=== PATIENT | male | born 1985 | race Caucasian/White ===

== ENCOUNTER 2016-10-03 10:05 | Observation (INO) | payer OTHER ==
[~2016-10-03] VITALS: Ht 172.7 cm; Wt 72.6 kg
[~2016-10-03 10:05] MED LIST: AMOXICILLIN500 M3 PO; LEVSIN/SL0.125 MG SL; OMEPRAZOLE D/R20 MG PO; PEPCID20 MG PO; PERCOCET 5-3251 EACH PO; PRILOSEC 20MG C20 MG PO; REGLAN10 MG PO; ZOFRAN4 M1 SL
--- NOTE | 2016-10-03 11:18 | ED GI/GU/ABDOMINAL COMPLAINT ---
See Addendum History of Present Illness General Chief Complaint: Male Genitourinary Problems Stated Complaint: "I THINK I HAVE KIDNEY STONES" Source: patient, old records Exam Limitations: no limitations Vital Signs & Intake/Output Vital Signs & Intake/Output Vital Signs Date Time Temp Pulse Resp B/P Pulse O2 O2 Flow FiO2 Ox Delivery Rate 10/03 1438 97.2 50 18 151/91 99 Room Air 10/03 1231 97.0 70 18 140/80 99 Room Air 10/03 1043 98 Room Air 10/03 1019 97.0 63 20 148/88 99 Room Air Room Air Allergies Coded Allergies: NO KNOWN ALLERGIES (03/16/16) Reconcile Medications No Known Home Medications Triage Note: PT TO ED WITH C/O RIGHT FLANK PAIN, SINCE WAKING UP THIS MORNING, HX KIDNEY STONES Triage Nurses Notes Reviewed? yes Onset: Just prior to arrival Duration: hour(s):, constant, continues in ED, getting worse Timing: recent history Quality/Severity: aching, sharpness, severe, vomiting Location: right flank Radiation: RLQ Activities at Onset: rest Prior Abdominal Problems: similar symptoms Past Sexual History: Unobtainable at this time No Modifying Factors: none Associated Symptoms: abdominal pain, diaphoresis, loss of appetite, nausea/ vomiting HPI: 2 hours prior to admission after waking patient complains of severe sharp achy right flank pain associated with nausea vomiting diaphoresis loss of appetite. He denies fever chills chest pain cough shortness of breath headache dysuria rash bleeding Past History Travel History Traveled to [place] past 21 day No Medical History Any Pertinent Medical History? 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 No Review of Systems Review of Systems Constitutional: Reports: see HPI, diaphoresis. EENTM: Reports: no symptoms. Respiratory: Reports: no symptoms. Cardiovascular: Reports: no symptoms. GI: Reports: see HPI, abdominal pain, vomiting. Genitourinary: Reports: see HPI, pain. Musculoskeletal: Reports: no symptoms. Skin: Reports: no symptoms. Neurological/Psychological: Reports: no symptoms. Hematologic/Endocrine: Reports: no symptoms. Immunologic/Allergic: Reports: no symptoms. All Other Systems: Reviewed and Negative Physical Exam Physical Exam General Appearance: well developed/nourished, alert, awake, anxious, severe distress Head: atraumatic, normal appearance Eyes: Bilateral: normal appearance, PERRL, EOMI, normal inspection. Ears, Nose, Throat, Mouth: hearing grossly normal, moist mucous membrane Neck: normal inspection, supple, full range of motion, normal alignment Respiratory: normal breath sounds, chest non-tender, no respiratory distress, quiet respiration, lungs clear Cardiovascular: regular rate/rhythm, normal peripheral pulses, norml femoral pulses equa Peripheral Pulses: 4+ carotid (R), 4+ carotid (L) Gastrointestinal: normal bowel sounds, soft, non-tender, no organomegaly Male Genitals: normal genitalia Back: normal inspection, normal range of motion, no vertebral tenderness Extremities: normal range of motion, no ligament instability Neurologic/Psych: no motor/sensory deficits, awake, alert, oriented x 3, normal gait, abnormal cerebellar tests Skin: normal color, diaphoresis Core Measures ACS in differential dx? No Severe Sepsis Present: No Septic Shock Present: No Progress Differential Diagnosis: biliary colic, gastritis, pyelonephritis, ureterolithiasis, UTI/pyelo Plan of Care: Orders Procedure Date/time Status Regular Diet 10/03 D Active Pathway - chart 10/03 1640 Active House Staff 10/03 1640 Active Patient Data 10/03 1640 Active Code Status 10/03 1640 Active Patient Data 10/03 1627 Active OXYGEN SETUP (GEN) 10/03 1610 Active Saline Lock 10/[address] in observation 10/03 1610 Active Vital Signs 10/03 1610 Active Activity/Ambulation 10/03 1610 Active Code Status 10/03 1610 Complete COMPREHENSIVE METABOLIC PANEL 10/03 1140 Complete CBC WITHOUT DIFFERENTIAL 10/03 1140 Complete Intake & Output 10/03 1043 Active URINALYSIS 10/03 1011 Complete VTE Mechanical Prophylaxis 10/03 UNK Active Current Medications Sig/Brea Start time Last Medication Dose Stop Time Status Admin Acetaminophen 325 MG Q6P PRN 10/03 1645 AC (Tylenol) Morphine Sulfate 2 MG Q4 PRN 10/03 1645 AC (Morphine) Oxycodone/ 1 TAB Q6 PRN 10/03 1645 AC Acetaminophen (Percocet) Laboratory Tests 10/03/16 1226: Anion Gap 8, Estimated GFR > 60, BUN/Creatinine Ratio 17.5, Glucose 149 H, Calcium 9.8, Total Bilirubin 0.5, AST 30, ALT 53, Alkaline Phosphatase 80, Total Protein 7.5, Albumin 4.5, Globulin 3.0, Albumin/Globulin Ratio 1.5, CBC w Diff NO MAN DIFF REQ, RBC 4.92, MCV 97.3 H, MCH 32.3 H, RDW 13.5, MPV 9.6, Gran % 81.9 H, Lymphocytes % 11.9 L, Monocytes % 5.3, Eosinophils % 0.6, Basophils % 0.3, Absolute Granulocytes 12.5 H, Absolute Lymphocytes 1.8, Absolute Monocytes 0.8 H, Absolute Eosinophils 0.1, Absolute Basophils 0, PUBS MCHC 33.2 10/03/16 1110: Urinalysis LIGHT H, Urine Color BROWN H, Urine Clarity CLDY H, Urine pH 5.5, Ur Specific [place] >= 1.030, Urine Protein 100 H, Urine Ketones TRACE H, Urine Nitrite POS H, Urine Bilirubin NEG@ICTO, Urine Urobilinogen 1.0, Ur Leukocyte Esterase NEG, Ur Microscopic SEDIMENT EXAMINED, Urine RBC >75 H, Urine WBC RARE, Ur Epithelial Cells RARE, Urine Bacteria FEW H, Urine Mucus MOD H, Micro UA Comment MORE INFO: H, Urine Hemoglobin LARGE H, Urine Glucose NEG Diagnostic Imaging: Viewed by Me: CT Scan. Discussed w/RAD: CT Scan. Radiology Impression: no acute abnormality Initial ED EKG: none Comments: Recurrent episodes of severe right flank pain requiring rapid titration of pain with fentanyl x 3 with nausea crying out with fear of recurrence and discharged home. Departure Departure Disposition: STILL A PATIENT Condition: Stable Clinical Impression Primary Impression: Hematuria Secondary Impressions: Leukocytosis Qualifiers: Leukocytosis type: unspecified Qualified Code: D72.829 - Elevated white blood cell count, unspecified Renal colic on right side Referrals: PATIENT HAS NO PRIMARY CARE DR (PCP/Family) Departure Forms: Customer Survey General Discharge Information Prescriptions: Current Visit Scripts No Known Home Medications Observation Note Spoke With: PRAMOD PATIÑO,TEODORA Physician Advisor Notified: STEFANIE DO,ENRIQUETA L. Place Patient In: Non-ED OBS Care Area Rationale for Observation: My rational for observation is as follows IV analgesia IV antiemetics and IV hydration serial exam continuing care discharge planning. Critical Care Note Critical Care Note Critical Care Time: 30-74 min (45)
--- NOTE | 2016-10-03 12:08 | CT SCAN REPORT ---
EXAMINATION: CT ABDOMEN AND PELVIS WITHOUT CONTRAST CLINICAL INFORMATION: 31-year-old man with renal colic and hematuria. COMPARISON: None TECHNIQUE: Multidetector volumetric imaging was performed from the superior aspect of the liver through the pubic symphysis. Sagittal and coronal reformatted images were obtained on the technologist's workstation. DLP: 254 mGy-cm FINDINGS: The lung bases are clear. The liver, spleen, pancreas, adrenals, kidneys, and partially contracted gallbladder are normal in their noncontrast appearance. A 1 mm nonobstructive calculus is seen in the midpole of the left kidney. Nondilated loops of large and small bowel are also unremarkable in appearance. The appendix and terminal ileum are not inflamed. The prostate, seminal vesicles, and decompressed bladder are normal in appearance. Degenerative changes are noted at the L5-S1 level. IMPRESSION: No acute intra-abdominal process is seen to explain the patient's symptoms.
[2016-10-03 12:43] LABS: ABSOLUTE BASOPHIL COUNT 0 /CUMM (0.0-0.2); ABSOLUTE EOSINOPHIL COUNT 0.1 /CUMM (0.0-0.7); ABSOLUTE GRANULOCYTE CT 12.5 /CUMM (1.4-6.5); ABSOLUTE LYMPH COUNT 1.8 /CUMM (1.2-3.4); ABSOLUTE MONOCYTE COUNT 0.8 /CUMM (0.10-0.60); BASOPHIL % 0.3 % (0.0-2.0); EOSINOPHIL % 0.6 % (0-5); GRANULOCYTE % 81.9 % (42.2-75.2); HEMATOCRIT 47.9 % (42-52); MEAN CORPUSCULAR HGB 32.3 PG (27.0-31.0); MEAN CORPUSCULAR HGB CONC 33.2 G/DL (33.0-37.0); MEAN CORPUSCULAR VOLUME 97.3 FL (80.0-94.0); MEAN PLATELET VOLUME 9.6 FL (7.4-10.4); PLATELET COUNT 177 /CUMM (130-400); RBC DISTRIBUTION WIDTH 13.5 % (11.5-14.5); RED BLOOD CELL CT 4.92 /CUMM (4.70-6.10); WHITE BLOOD CELL COUNT 15.3 /CUMM (4.8-10.8)
--- NOTE | 2016-10-03 17:24 | History & Physical ---
SHOSHANA LAST 10/03/16 1706: General Information and HPI MD Statement: I have seen and personally examined AMY COYNE and documented this H&P. The patient is a 31 year old M who presented with a patient stated chief complaint of [RENAL COLIC]. Source of Information: patient Exam Limitations: no limitations History of Present Illness: Patient is a 31-year-old male with past medical history of hypertension, GERD, kidney stones presented to the ED today with a chief complaint of acute abdominal pain that started this morning. Patient states that he woke UP 8 AM this morning with intense acute onset of sharp, achy, right flank and right lower quadrant pain, associated with nausea and vomiting. Pain is 10/10 in intensity, sharp, comes intermittently and he noted some blood in urine this morning. He felt extremely nauseous and threw up a few times in the ED. He thought this could be related to renal colic as he had experienced a similar episode 16 years back with subsided with passage of the stone. Patient denied any fevers, chills, shortness of breath, palpitations , diarrhea or constipation. He does endorse some cough which has been going on for the past 2 days and is nonproductive in nature. Complains of some urinary urgency however denies any dysuria, hesitancy. Patient has no primary care provider, and has never seen a urologist in the past. No interventions for stone removal in the past. In the ER vitals, Temperature 90.7, pulse 63, respiration 20, blood pressure 148/88, saturating 99 % on room air. Labs showed a white count of 15.3 with no left shift, sodium 135, glucose 149, normal creatinine and BUN ,normal LFTs. Urine was brown in color, cloudy, with trace ketones, positive nitrite, more than 75 RBCs, few bacteria, large hemoglobin, few bacteria. CT scan: No evidence of stones, no acute intra-abdominal process. Patient received 3 L normal saline boluses, morphine and Zofran in the ED. 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 EENTM: Reports: no symptoms. Cardiovascular: Reports: no symptoms. Respiratory: Reports: cough. GI: Reports: abdominal pain (right flank pain). Genitourinary: Reports: hematuria, urgency. Musculoskeletal: Reports: back pain. Skin: Reports: no symptoms. Neurological/Psychological: Reports: no symptoms. Exam & Diagnostic Data Last 24 Hrs of Vital Signs/I&O Vital Signs Date Time Temp Pulse Resp B/P Pulse O2 O2 Flow FiO2 Ox Delivery Rate 10/03 1438 97.2 50 18 151/91 99 Room Air 10/03 1231 97.0 70 18 140/80 99 Room Air 10/03 1043 98 Room Air 10/03 1019 97.0 63 20 148/88 99 Room Air Room Air Intake & Output 10/03 1600 10/03 0800 10/03 0000 Intake Total 2000 Output Total Balance 2000 Intake, IV 2000 Patient 72.575 kg Weight Physical Exam General Appearance Alert, Oriented X3, Cooperative, Mild Distress Skin No Rashes, No Breakdown, No Significant Lesion HEENT Atraumatic, PERRLA, EOMI Neck Supple, No JVD Lymphatic Cervical nl Cardiovascular Regular Rate, Normal S1, Normal S2 Lungs Clear to Auscultation, Normal Air Movement Abdomen right upper quadrant and right flank pain, right CVA tenderness Neurological Normal Speech, Strength at 5/5 X4 Ext, Normal Tone, Sensation Intact, Cranial Nerves 3-12 NL Extremities No Clubbing, No Cyanosis, No Edema, Normal Pulses Vascular Normal Pulses Last 24 Hrs of Labs/Ulises: Laboratory Tests 10/03/16 1226: Anion Gap 8, Estimated GFR > 60, BUN/Creatinine Ratio 17.5, Glucose 149 H, Calcium 9.8, Total Bilirubin 0.5, AST 30, ALT 53, Alkaline Phosphatase 80, Total Protein 7.5, Albumin 4.5, Globulin 3.0, Albumin/Globulin Ratio 1.5, CBC w Diff NO MAN DIFF REQ, RBC 4.92, MCV 97.3 H, MCH 32.3 H, RDW 13.5, MPV 9.6, Gran % 81.9 H, Lymphocytes % 11.9 L, Monocytes % 5.3, Eosinophils % 0.6, Basophils % 0.3, Absolute Granulocytes 12.5 H, Absolute Lymphocytes 1.8, Absolute Monocytes 0.8 H, Absolute Eosinophils 0.1, Absolute Basophils 0, PUBS MCHC 33.2 10/03/16 1110: Urinalysis LIGHT H, Urine Color BROWN H, Urine Clarity CLDY H, Urine pH 5.5, Ur Specific [place] >= 1.030, Urine Protein 100 H, Urine Ketones TRACE H, Urine Nitrite POS H, Urine Bilirubin NEG@ICTO, Urine Urobilinogen 1.0, Ur Leukocyte Esterase NEG, Ur Microscopic SEDIMENT EXAMINED, Urine RBC >75 H, Urine WBC RARE, Ur Epithelial Cells RARE, Urine Bacteria FEW H, Urine Mucus MOD H, Micro UA Comment MORE INFO: H, Urine Hemoglobin LARGE H, Urine Glucose NEG Assessment/Plan Assessment: Patient is a 31-year-old male with past medical history of hypertension, GERD, kidney stones presented to the ED today with a chief complaint of acute abdominal pain that started this morning. In the ER vitals, Temperature 90.7, pulse 63, respiration 20, blood pressure 148/88, saturating 99 % on room air. Labs showed a white count of 15.3 with no left shift, sodium 135, glucose 149, normal creatinine and BUN ,normal LFTs. Urine was brown in color, cloudy, with trace ketones, positive nitrite, more than 75 RBCs, few bacteria, large hemoglobin, few bacteria. CT scan: No evidence of stones, no acute intra-abdominal process. Patient received 3 L normal saline boluses, morphine and Zofran in the ED. Plan: #Renal colic: Patient likely passed the stone as there was no evidence on CT scan. History of renal stones in the past. No previous interventions -[facility] observation -Mild leukocytosis likely reactive. -Blood and urine cultures ordered -Received 3 L sodium chloride boluses in the day. Continue maintenance with normal saline at 75 mL an hour -Continue IV Zofran for nausea -Pain control with IV morphine and Tylenol as per pain scale -Serial abdominal examinations -Watch off antibiotics. Start antibiotics only if febrile. -Urology consult if symptoms worsen Regular diet Mild/moderate/severe pain management pathway Full code As Ranked By This Provider Problem List: 1. Leukocytosis Qualifiers Leukocytosis type: unspecified Qualified Code: D72.829 - Elevated white blood cell count, unspecified 2. Renal colic on right side 3. Hematuria Core Measures/Miscellaneous Acute Coronary Syndrome ACS Diagnosis: No Cerebrovascular Accident CVA/TIA Diagnosis: No Congestive Heart Failure CHF Diagnosis: No Venous Thromboembolism VTE Risk Factors: No Risk Factors No Mech VTE prophylaxis d/t: No contraindications No VTE Pharm Prophylaxis d/t: No contraindications VTE Diagnosis: No VTE Type: NONE VTE Confirmed by (Test): NONE Severe Sepsis Severe Sepsis Present: No Septic Shock Septic Shock Present: No Miscellaneous Documentation Attending Case Discussed With: TEODORA BENAVIDEZ MD Primary Care Physician: PATIENT HAS NO PRIMARY CARE DR Patient sees these Specialists none Level of Patient Care: General Medicine TEODORA BENAVIDEZ MD 10/03/16 1740: Attending MD Review Statement Attending Statement Attending MD Statement: examined this patient, discuss w/resident/PA/FUEL CELL BATTERY TECHNICIAN, agreed w/resident/PA/FUEL CELL BATTERY TECHNICIAN, reviewed EMR data (avail) Attending Assessment/Plan: Agree with resident assessment and plan. Will start IV pain meds, IV hydration, check UA and urine culture, start antibiotics only if febrile
[2016-10-03 21:00] VITALS: BP 164/110
[2016-10-03 22:39] VITALS: BP 144/110
[2016-10-04 00:42] VITALS: BP 164/120
[2016-10-04 08:06] VITALS: BP 110/65
[2016-10-04 08:13] LABS: ABSOLUTE EOSINOPHIL COUNT 0 /CUMM (0.0-0.7); EOSINOPHIL % 0.3 % (0-5)
--- NOTE | 2016-10-04 08:21 | PN- Housestaff ---
PATRICIALUPE 10/04/16 0820: Subjective Follow-up For: Abdominal pain Hypertensive urgency History of renal stones Complaints: abdominal pain improved compared to yesterday Subjective: Review the patient lying comfortably on the bed watching television is not in acute distress. The patient reports significant improvement in his pain he is looking forward to go home today. Blood pressure improved significantly this morning within normal range. Review of Systems Constitutional: Denies: chills, fever. Cardiovascular: Denies: chest pain, palpitations. Respiratory: Denies: cough, short of breath. Gastrointestinal: Reports: see HPI. Genitourinary: Denies: no symptoms. Objective Last 24 Hrs of Vital Signs/I&O Vital Signs Date Time Temp Pulse Resp B/P Pulse O2 O2 Flow FiO2 Ox Delivery Rate 10/04 0922 59 110/65 04/ 0806 97.8 59 15 110/65 95 Room Air 10/04 0159 62 164/120 10/04 0042 54 164/120 10/04 0000 Room Air 10/03 2239 64 144/110 10/03 2100 98.3 60 18 164/110 100 Room Air 10/03 2009 97.9 80 18 130/92 98 Room Air 04 1851 154/102 04/ 1809 97.6 56 18 189/122 97 Room Air 04/ 1808 97.8 56 18 189/122 / 1611 97.9 54 20 162/94 97 Room Air 04/ 1438 97.2 50 18 151/91 99 Room Air 10/03 1231 97.0 70 18 140/80 99 Room Air 10/03 1043 98 Room Air 10/03 1019 97.0 63 20 148/88 99 Room Air Room Air Intake & Output 10/04 1600 10/04 0800 04/ 0000 Intake Total 700 340 Output Total 600 1 Balance 100 339 Intake, IV 700 100 Intake, Oral 240 Output, Other 1 Output, Urine 600 Patient 160 lb Weight Physical Exam General Appearance: Alert, Oriented X3, Cooperative, No Acute Distress Skin: No Rashes HEENT: Atraumatic, Mucous Membr. moist/pink Neck: Supple, No JVD Cardiovascular: Regular Rate, Normal S1, Normal S2 Lungs: Clear to Auscultation, Normal Air Movement Abdomen: Normal Bowel Sounds, Soft, No Tenderness Neurological: Normal Speech, Normal Tone Extremities: No Clubbing, No Cyanosis, No Edema Current Medications: Current Medications Sig/Brea Start time Last Medication Dose Route Stop Time Status Admin Acetaminophen 325 MG Q6P PRN 10/03 1645 AC PO Acetaminophen 0 .STK-MED ONE 10/03 1603 DC IV Acetaminophen 1,000 MG ONCE ONE 10/03 1600 DC 10/03 IV 10/03 1601 1610 Enalaprilat 0 .STK-MED ONE 10/03 1803 DC IV Enalaprilat 1.25 MG ONCE ONE 10/03 1800 DC 10/03 IV 10/03 1801 1808 Enoxaparin Sodium 0 .STK-MED ONE 10/03 1657 DC SC Enoxaparin Sodium 40 MG DAILY 10/03 1645 AC 10/04 SC 0921 Fentanyl Citrate 25 MCG ONCE ONE 10/03 1615 DC 10/03 IV 10/03 1616 1610 Fentanyl Citrate 0 .STK-MED ONE 10/03 1606 DC .ROUTE Fentanyl Citrate 25 MCG ONCE ONE 10/03 1315 DC 10/03 IV 10/03 1316 1313 Fentanyl Citrate 0 .STK-MED ONE 10/03 1252 DC .ROUTE Fentanyl Citrate 50 MCG ONCE ONE 10/03 1045 DC 04/ IV 10/03 1046 1045 Fentanyl Citrate 0 .STK-MED ONE 10/03 1041 DC .ROUTE Hydromorphone HCl 1 MG ONCE ONE 10/03 1315 DC / IV 10/03 1316 1313 Hydromorphone HCl 0 .STK-MED ONE 10/03 1252 DC .ROUTE Ketorolac 0 .STK-MED ONE 10/03 1033 DC Tromethamine .ROUTE Lisinopril 5 MG DAILY 10/04 0100 AC 10/04 PO 0922 Lorazepam 0 .STK-MED ONE 10/03 1604 DC .ROUTE Lorazepam 1 MG ONCE ONE 10/03 1600 DC 10/03 IV 10/03 1601 1609 Morphine Sulfate 0 .STK-MED ONE 10/03 2031 DC .ROUTE Morphine Sulfate 2 MG Q4 PRN 10/03 1645 AC 10/04 IV 0921 Morphine Sulfate 4 MG ONCE ONE 10/03 1045 DC 10/03 IV 10/03 1046 1045 Morphine Sulfate 0 .STK-MED ONE 10/03 1033 DC .ROUTE Nicotine 14 MG DAILY 10/03 2200 AC 10/04 TOP 0921 Ondansetron HCl 4 MG Q6P PRN 10/03 1730 AC 10/04 IV 0523 Ondansetron HCl 4 MG ONCE ONE 10/03 1315 DC 10/03 IV 10/03 1316 1313 Ondansetron HCl 0 .STK-MED ONE 10/03 1242 DC .ROUTE Ondansetron HCl 4 MG ONCE ONE 10/03 1045 DC 10/03 IV 10/03 1046 1045 Ondansetron HCl 0 .STK-MED ONE 10/03 1033 DC .ROUTE Oxycodone/ 1 TAB Q6 PRN 10/03 1645 AC Acetaminophen PO Sodium Chloride 1,000 ML Q10H 10/03 1730 AC 10/04 IV 0525 Sodium Chloride 1,000 ML BOLUS ONE 10/03 1345 DC 10/03 IV 10/03 1444 1446 Sodium Chloride 1,000 ML BOLUS ONE 10/03 1045 DC 10/03 IV 10/03 1144 1045 Sodium Chloride 1,000 ML BOLUS ONE 10/03 1045 DC 10/03 IV 10/03 1144 1344 Last 24 Hrs of Lab/Ulises Results Last 24 Hrs of Labs/Mics: Laboratory Tests 10/04/16 0710: Anion Gap 8, Estimated GFR > 60, BUN/Creatinine Ratio 11.4, CBC w Diff NO MAN DIFF REQ, RBC 4.45 L, MCV 96.0 H, MCH 32.2 H, RDW 13.2, MPV 10.3, Gran % 72.9 , Lymphocytes % 18.6 L, Monocytes % 7.9, Eosinophils % 0.3, Basophils % 0.3, Absolute Granulocytes 9.6 H, Absolute Lymphocytes 2.4, Absolute Monocytes 1.0 H, Absolute Eosinophils 0, Absolute Basophils 0, PUBS MCHC 33.5 10/03/16 1226: Anion Gap 8, Estimated GFR > 60, BUN/Creatinine Ratio 17.5, Glucose 149 H, Calcium 9.8, Total Bilirubin 0.5, AST 30, ALT 53, Alkaline Phosphatase 80, Total Protein 7.5, Albumin 4.5, Globulin 3.0, Albumin/Globulin Ratio 1.5, CBC w Diff NO MAN DIFF REQ, RBC 4.92, MCV 97.3 H, MCH 32.3 H, RDW 13.5, MPV 9.6, Gran % 81.9 H, Lymphocytes % 11.9 L, Monocytes % 5.3, Eosinophils % 0.6, Basophils % 0.3, Absolute Granulocytes 12.5 H, Absolute Lymphocytes 1.8, Absolute Monocytes 0.8 H, Absolute Eosinophils 0.1, Absolute Basophils 0, PUBS MCHC 33.2 10/03/16 1110: Urinalysis LIGHT H, Urine Color BROWN H, Urine Clarity CLDY H, Urine pH 5.5, Ur Specific [place] >= 1.030, Urine Protein 100 H, Urine Ketones TRACE H, Urine Nitrite POS H, Urine Bilirubin NEG@ICTO, Urine Urobilinogen 1.0, Ur Leukocyte Esterase NEG, Ur Microscopic SEDIMENT EXAMINED, Urine RBC >75 H, Urine WBC RARE, Ur Epithelial Cells RARE, Urine Bacteria FEW H, Urine Mucus MOD H, Micro UA Comment MORE INFO: H, Urine Hemoglobin LARGE H, Urine Glucose NEG Microbiology 10/03 1721 URINE ROUT: Urine Culture - COLB 10/03 1721 BLOOD: Blood Culture - CAN Cancelled: SPECIMEN NOT RECEIVED IN LABORATORY 10/03 1721 BLOOD: Blood Culture - CAN Cancelled: SPECIMEN NOT RECEIVED IN LABORATORY Assessment/Plan Assessment: This is a 31-year-old male with past medical history of hypertension [not on treatment], GERD, kidney stones presented to the ED with a chief complaint of acute abdominal pain that started the morning of presentation. The CT scan of the abdomen does not show any renal stones or shunt was initially admitted to general med seeking to transfer to telemetry because of significant high blood pressure. Hypertension Initial layer patient with significant high blood pressure started on lisinopril 5 mg daily. This morning blood pressure within normal level. Patient reports lack of insurance and inability to live medication out of pocket.. Located on the importance of maintaining blood pressure to avoid long-term comorbidities associated with uncontrolled hypertension. Per patient he has been hypertensive since 7 years old. Patient to be discharged on lisinopril. Renal colic abdominal pain No imaging evidence of outstanding renal stone. Significant improvement in pain. Patient will be discharged on oral analgesics and instructions to drink water liberally. Leukocytosis Probably reactive, UA shows positive nitrites but no urinary symptoms. Patient remained afebrile overnight and was not started on antibiotics. Problem List: 1. Hypertension 2. Leukocytosis 3. Renal colic on right side Pain Ratin Pain Location: Abdomen Pain Goal: Remain pain free Pain Plan: Multiple pain pathways Tomorrow's Labs & Rationales: None DVT/Prophylaxis: pharmacological Discharge Plan Discharge Disposition: home Stable for Discharge? Yes Anticipated Discharge (Day): today If Discharged Today/In 24 Hrs: CMR done TEODORA BENAVIDEZ MD 10/04/16 1244: Attending MD Review Statement Attending Statement Attending MD Statement: examined this patient, discuss w/resident/PA/FLEXIBLE NANNY, agreed w/resident/PA/FLEXIBLE NANNY, reviewed EMR data (avail) Attending Assessment/Plan: Charles feels much better today. His flank pain is resolved. He has remained afebrile. His BP was elevated overnight likely due to pain, and he is now normotensive. Patient is stable for discharge home. Will give Percocet for PRN pain. Will cotninue Lisinopril, and refer to primary care physician, as patient does not have one.
[2016-10-04 08:47] LABS: ABSOLUTE BASOPHIL COUNT 0 /CUMM (0.0-0.2); ABSOLUTE GRANULOCYTE CT 9.6 /CUMM (1.4-6.5); ABSOLUTE LYMPH COUNT 2.4 /CUMM (1.2-3.4); BASOPHIL % 0.3 % (0.0-2.0); GRANULOCYTE % 72.9 % (42.2-75.2); MEAN CORPUSCULAR HGB 32.2 PG (27.0-31.0); MEAN CORPUSCULAR HGB CONC 33.5 G/DL (33.0-37.0); MEAN PLATELET VOLUME 10.3 FL (7.4-10.4); PLATELET COUNT 157 /CUMM (130-400); RBC DISTRIBUTION WIDTH 13.2 % (11.5-14.5); RED BLOOD CELL CT 4.45 /CUMM (4.70-6.10); WHITE BLOOD CELL COUNT 13.2 /CUMM (4.8-10.8)
[2016-10-04 08:50] LABS: HEMATOCRIT 42.7 % (42-52)
[2016-10-04 09:22] VITALS: BP 110/65
[2016-10-04] MEDS ORDERED: PERCOCET 5-3251 EACH PO (11:25)
[2016-10-04] MEDS ORDERED: LISINOPRIL5 M1 PO (11:25)
--- NOTE | 2016-10-04 11:29 | Patient Discharge Instructions ---
Discharge Instructions General Discharge Information You were seen/treated for: Renal colic abdominal pain Hypertensive urgency Special Instructions: Please call and make a follow-up with Dr. Martin will be your new primary care physician address and phone number provided. You need to be on antihypertensive medications Acute Coronary Syndrome Inclusion Criteria At DC or during hospital stay patient has or had the following: ACS DIAGNOSIS No Discharge Core Measures Meds if any: Prescribed or Continued at Discharge Meds if any: NOT Prescribed or Continued at Discharge Congestive Heart Failure Inclusion Criteria At DC or during hospital stay patient has or had the following: CHF DIAGNOSIS No Discharge Core Measures Meds if any: Prescribed or Continued at Discharge Meds if any: NOT Prescribed or Continued at Discharge Cerebrovascular accident Inclusion Criteria At DC or during hospital stay patient has or had the following: CVA/TIA Diagnosis No Discharge Core Measures Meds if any: Prescribed or Continued at Discharge Meds if any: NOT Prescribed or Continued at Discharge Venous thromboembolism Inclusion Criteria VTE Diagnosis No VTE Type NONE VTE Confirmed by (Test) NONE Discharge Core Measures - Per Current guidelines, there needs to be overlap - treatment for the first 5 days of Warfarin therapy. - If discharged on Warfarin prior to 5 days of - overlap therapy, the patient will need to be - assessed for post discharge needs including - *Post discharge parental anticoagulation - *Warfarin and/or parental anticoagulation education - *Follow up date to check INR post discharge At least 5 days overlap therapy as Inpatient No Meds if any: Prescribed or Continued at Discharge Note: Overlap Therapy is Warfarin and Anticoagulant Meds if any: NOT Prescribed or Continued at Discharge
== END 2016-10-04 13:38 ==
LOC: ENRESERVTM → CANRESERV → ENRESERVDT → ERH 10:05 → ENPENDDIS 16:10 → 1NO 16:10 → ERHI 16:10 → 1NO 20:50
PROVIDERS: Emergency Medicine; Student in an Organized Health Care Education/Training Program; ADMIT Internal Medicine
DX: N23 Unspecified renal colic (principal); I10 Essential (primary) hypertension; K21.9 Gastro-esophageal reflux disease without esophagitis; D72.829 Elevated white blood cell count, unspecified; R31.9 Hematuria, unspecified
CPT/HCPCS: 6020; 74176; 81001; 82436; 87040; 87086; 93005; 93010; 96361; 96372; 96374; 96375; 96376; 99291; G0378; J0131; J1650; J1885; J2405; J3010

== ENCOUNTER 2016-12-19 23:43 | Emergency (ER) | payer OTHER ==
[~2016-12-19] VITALS: Ht 177.8 cm; Wt 70.3 kg
[~2016-12-19 23:43] MED LIST changes: +LISINOPRIL5 M1 PO
[2016-12-19 23:49] VITALS: BP 147/103
--- NOTE | 2016-12-20 00:14 | ED GENERAL ADULT ---
See Addendum History of Present Illness General Chief Complaint: General Adult Stated Complaint: "BIBA PER EMS ETOH/ PANIC ATTACK" Source: patient, EMS Exam Limitations: no limitations Vital Signs & Intake/Output Vital Signs & Intake/Output Vital Signs Date Time Temp Pulse Resp B/P B/P Pulse O2 O2 Flow FiO2 Mean Ox Delivery Rate 12/20 0121 99 Room Air 12/19 2349 97.9 96 21 147/103 96 Room Air ED Intake and Output 12/20 0000 12/19 1200 Intake Total Output Total Balance Patient 155 lb Weight Weight Estimated Measurement Method Allergies Coded Allergies: NO KNOWN ALLERGIES (03/16/16) Reconcile Medications Lisinopril 5 MG TABLET 5 MG PO DAILY HTN Oxycodone HCl/Acetaminophen (Percocet 5-325 MG Tablet) 5 MG-325 MG TABLET 1 TAB PO Q6 PRN COLIC PAIN Triage Note: PT BIBA FROM A BAR. PER EMS PT DID NOT PAY BAR TAB, BEGAN HYPERVENTILATING AND CRYING. PT ARRIVES UPSET, CRYING, ON PHONE WITH FATHER, WANTING TO GO HOME. Triage Nurses Notes Reviewed? yes Onset: Abrupt Duration: hour(s): (2-3) Timing: single episode today Injury Environment: bar Severity: mild, moderate No Modifying Factors: none HPI: 31-year-old male with no past medical history brought in by ambulance after becoming very upset at a bar. Patient reports that he was unable to pay his bar tab. Upon finding out he did not have any money and his bank account and he became very upset started hyperventilating and crying. Police and EMS were called and patient was told he can either go to the hospital or go to prison. Currently patient reports she is feeling fine. He denies any pain, suicidal ideation, homicidal ideation, illicit drug use, nausea, vomiting, chest pain, shortness of breath. He reports he drank 5 shots of vodka and 6 beers over 3 or 4 hour period. He reports he drinks once or twice a week. No other associated symptoms. He does report that he can get a sober person to drive him home. (LIZZETTE PHOENIX PA-C) Past History Travel History Traveled to [place] past 21 day No Medical History Any Pertinent Medical History? 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 Yes (LIZZETTE PHOENIX PA-C) Review of Systems Review of Systems Constitutional: Reports: no symptoms. EENTM: Reports: no symptoms. Respiratory: Reports: no symptoms. Cardiovascular: Reports: no symptoms. GI: Reports: no symptoms. Genitourinary: Reports: no symptoms. Musculoskeletal: Reports: no symptoms. Skin: Reports: no symptoms. Neurological/Psychological: Reports: see HPI, anxiety. Hematologic/Endocrine: Reports: no symptoms. Immunologic/Allergic: Reports: no symptoms. All Other Systems: Reviewed and Negative (LIZZETTE PHOENIX PA-C) Physical Exam Physical Exam General Appearance: well developed/nourished, no apparent distress, alert, awake , anxious, intoxicated Head: atraumatic, normal appearance Eyes: Bilateral: normal appearance, PERRL, EOMI. Ears, Nose, Throat: normal pharynx, normal ENT inspection, hearing grossly normal Neck: normal inspection, supple, full range of motion Respiratory: normal breath sounds, chest non-tender, no respiratory distress, lungs clear Cardiovascular: regular rate/rhythm, normal peripheral pulses Peripheral Pulses: 2+ dorsalis pedis (R), 2+ dorsalis pedis (L) Gastrointestinal: normal bowel sounds, soft, non-tender Back: normal inspection, normal range of motion Extremities: normal inspection, normal capillary refill, normal range of motion, no edema Neurologic/Psych: no motor/sensory deficits, awake, alert, oriented x 3, normal gait, normal mood/affect, intoxicated, ETOH .30 Reflexes: 2+: knee (R), knee (L). Skin: intact, normal color, warm/dry Lymphatic: no anterior cervical lauren Core Measures ACS in differential dx? No CVA/TIA Diagnosis: No Severe Sepsis Present: No Septic Shock Present: No (LIZZETTE PHOENIX PA-C) Progress Differential Diagnoses I considered the following diagnoses in my evaluation of the patient: Alcohol intoxication, drug intoxication, altered mental status, electrolyte abnormality, anxiety attack Plan of Care: Patient was breathalyzed at .30 and when he is clinicaly sober he'll be discharged with a sober person home. Patient currently denies any pain or HI or SI. Discussed plan with patient and he is in agreement. Discussed with Dr. Mckoy and he is in agreement with the plan. Initial ED EKG: none Hand-Off Endorsed To: FERCHO PATIÑO,EMA Washburn Endorsed Time: 110 Pending: other (clinical sobriety) Comments: Patient will be discharged home after he is clinically sober. He has a sober family member who can pick him up. (LIZZETTE PHOENIX PA-C) Departure Departure Disposition: STILL A PATIENT Condition: Stable Clinical Impression Primary Impression: Alcohol intoxication Qualifiers: Complication of substance-induced condition: uncomplicated Qualified Code: F10.920 - Alcohol use, unspecified with intoxication, uncomplicated Referrals: PATIENT HAS NO PRIMARY CARE DR (PCP/Family) Departure Forms: Customer Survey General Discharge Information (LIZZETTE PHOENIX PA-C) PA/CHECKER AND PACKER Co-Sign Statement Statement: ED Attending supervision documentation- [] I saw and evaluated the patient. I have also reviewed all the pertinent lab results and diagnostic results. I agree with the findings and the plan of care as documented in the PA's/CHECKER AND PACKER's documentation. [x] I have reviewed the ED Record and agree with the PA's/CHECKER AND PACKER's documentation. [] Additions or exceptions (if any) to the PAs/CHECKER AND PACKER's note and plan are summarized below: [] (FERCHO PATIÑO,EMA Washburn) Critical Care Note Critical Care Note Critical Care Time: non-applicable (LIZZETTE PHOENIX PA-C)
== END 2016-12-20 04:38 ==
LOC: ERH 23:43
DX: F10.129 Alcohol abuse with intoxication, unspecified (principal)